=== PATIENT | male | born 1990 | race Two or more races ===

== ENCOUNTER 2024-06-05 19:21 | Emergency (ER) | payer OTHER, SELFPAY ==
[2024-06-05] VITALS (21 sets, daily range): BP systolic 147–177; BP diastolic 78–91; PULSE 112–119; RESP 26; TEMP 37.2; O2SAT 92–99; BMI 24.6
--- NOTE | 2024-06-05 19:53 | CRLHL7_ITS ---
For Patients: As a result of the Century Cures Act, medical imaging exams and procedure reports are released immediately into your electronic medical record. You may view this report before your referring provider. If you have questions, please contact your health care provider. INDICATION: Cough, chest pain, shortness of breath. TECHNIQUE: Chest radiographs, 2 views. COMPARISON: None. FINDINGS: Cardiovascular/Mediastinum: Normal heart size. Unremarkable. Lungs: Patchy multifocal consolidation predominantly involving the right greater than left lung zones. Airways: Trachea remains midline. Pleura: No pleural effusions or pneumothorax. Bones: No acute osseous abnormalities. Upper abdomen: Unremarkable. IMPRESSION: Nonspecific patchy multifocal consolidation can be seen in the setting of acute respiratory distress syndrome (ARDS). Dictated by Porfirio Tobar MD @ 06/05/2024 8:50:01 PM (Electronically Signed)
[2024-06-05 20:12] LABS: Lactate* 0.7 mmol/L (0.5-1.9)
[2024-06-05 20:16] LABS: Basophils Percent Auto 0.1 % (0.0-3.0); Hematocrit 20.1 % (37.0-53.0); Immature Granulocytes Pct Auto 0.5 %; Lymphocytes Percent Auto 5.1 % (20-44); Mean Corpuscular HGB Conc 33 gm/dL (32-36); Mean Corpuscular Hemoglobin 28 pg (26-34); Mean Corpuscular Volume 86 fL (80-100); Monocytes Percent Auto 2.8 % (0.0-11.0); Neutrophils Percent Auto 91.5 % (42.0-72.0); Platelet Count* 189 K/uL (140-440); RDW Coefficient of Variation % 14.2 % (11.5-15.5); Red Blood Count 2.34 m/uL (4.30-5.90); White Blood Count* 21.76 K/uL (4.50-11.00)
[2024-06-05 20:17] LABS: Hemoglobin* 6.6 gm/dL (13.5-17.5)
[2024-06-05 20:21] LABS: Slide Review Reflex Yes
[2024-06-05 20:26] LABS: Albumin* 4.1 g/dL (3.3-5.0); Chloride* 100 mmol/L (96-114); Sodium* 130 mmol/L (135-149)
[2024-06-05 20:27] LABS: Potassium* 4.7 mmol/L (3.6-5.1)
[2024-06-05 20:28] LABS: Troponin, Point-of-Care* 0.09 ng/ml (0.01-0.04)
[2024-06-05 20:30] LABS: Alanine Aminotransferase* 9 U/L (4-50); Alkaline Phosphatase* 112 U/L (40-150); Aspartate Amino Transferase* 20 U/L (12-35); Bilirubin Direct* 0.8 mg/dL (0.0-0.5); Bilirubin Total* 0.8 mg/dL (0.1-1.5); Glucose* 102 mg/dL (60-115); Lipase* 280 U/L (23-300); Total Protein* 7.2 g/dL (6.0-8.3)
[2024-06-05 20:36] LABS: Slide Review Acceptable Review (Acceptable)
[2024-06-05 20:39] LABS: Anion Gap 25 mEq/L (7-15); Blood Urea Nitrogen* 164 mg/dL (5-24); Calcium* 4.3 mg/dL (8.4-10.6); Carbon Dioxide* < 5 mmol/L (20-32)
[2024-06-05 20:41] LABS: PCR FLU A Negative PCR FLU A (Negative); PCR FLU B Negative PCR FLU B (Negative); PCR RSV Negative PCR RSV (Negative); SARS PCR* POSITIVE SARS-CoV-2 (Negative)
[2024-06-05 20:44] LABS: Troponin I* 0.09 ng/mL (0.01-0.04)
[2024-06-05 21:01] LABS: Strep A DNA Probe* NOT DETECTED (Not Detectd)
[2024-06-05 21:09] LABS: Creatinine* 20.1 mg/dL (0.5-1.5); Est. Creatinine Clearance* 4.96; Estimated Glomerular Filt Rate 3 ml/min
[2024-06-05 21:10] LABS: C Reactive Protein* 31.8 mg/dL (0.5-1.0); Erythrocyte SedimentationRate* > 120 mm/hr (2-15)
--- NOTE | 2024-06-05 21:11 | CRLHL7_ITS ---
For Patients: As a result of the 21st Century Cures Act, medical imaging exams and procedure reports are released immediately into your electronic medical record. You may view this report before your referring provider. If you have questions, please contact your health care provider. INDICATION: Sepsis. TECHNIQUE: Multiplanar CT examination of the chest, abdomen and pelvis was performed without the use of intravenous contrast. COMPARISON: None. FINDINGS: CHEST: Lower neck: Visualized thyroid appears unremarkable. Cardiovascular: Normal heart size. No significant atherosclerotic calcifications of the thoracic aorta. Normal caliber of the thoracic aorta and pulmonary artery. No CT evidence of acute aortic injury. No significant coronary arterial calcifications. No large central pulmonary embolus. Mediastinum and lymph nodes: No pathologic lymphadenopathy by size criteria. Airways: Trachea remains patent and midline. Mild diffuse peribronchial wall thickening. Lungs: Extensive multifocal consolidation with peripheral ground-glass opacification (halo sign). Pleura: No pleural effusions or pneumothorax. Chest wall: No axillary lymphadenopathy. Unremarkable. Bones: No acute osseous abnormalities. No acute displaced rib fractures. ABDOMEN AND PELVIS: Liver: Unremarkable. Gallbladder: Unremarkable. Biliary: No biliary ductal dilatation. Pancreas: Within normal limits. Spleen: Unremarkable. Adrenals: Unremarkable. Kidneys/ureters/bladder: Bilateral renal atrophy. No obstructive urinary calculus or hydronephrosis. No obstructive uropathy. The bladder is within normal limits. Limited evaluation for renal masses without the use of intravenous contrast. Gastrointestinal: No bowel wall thickening or bowel obstruction. Normal appendix. No significant colonic diverticulosis. Mild colonic stool burden. Pelvic structures: Unremarkable. Vascular: No significant atherosclerotic calcifications of the abdominal aorta. No aneurysm. Peritoneum: No free fluid or pneumoperitoneum. No drainable fluid collections. Lymph nodes: No pathologic lymphadenopathy by size criteria. Abdominal wall/soft tissues: Unremarkable. Bones: No acute osseous abnormalities. IMPRESSION: 1. Limited evaluation without the use of intravenous contrast. 2. Extensive multifocal consolidation with peripheral ground-glass opacification (halo sign), suspicious for an atypical pneumonia. Clinical correlation with patient`s immune status and consider atypical fungal etiologies (for example, angioinvasive aspergillosis). 3. No acute abdominopelvic pathology. Please note that all CT scans at this facility use dose modulation, iterative reconstruction, and/or weight-based dosing when appropriate to reduce radiation dose to as low as reasonably achievable. Dictated by Porfirio Tobar MD @ 06/05/2024 10:32:58 PM (Electronically Signed)
[2024-06-05 21:15] LABS: Fibrinogen* 777 mg/dL (200-450); INR 1.44 (0.91-1.10); Prothrombin Time 18.5 Seconds
[2024-06-05 21:20] LABS: Magnesium* 1.4 mg/dL (1.5-2.6)
--- NOTE | 2024-06-05 22:18 | ED_ITS ---
HPI - General Adult General Chief complaint: Shortness of Breath/Dyspnea Stated complaint: Sore throat, SOB, cough Time Seen by Provider: 06/05/24 19:46 Source: patient Mode of arrival: ambulatory Limitations: no limitations History of Present Illness HPI narrative: Patient is a 34-year-old male who was in his usual state of health until 2 days ago when he developed a cough, body aches and shortness of breath. He stated that it came on fairly suddenly with cold symptoms that escalated to shortness of breath and body aches by the end of day 1. He denies vomiting. Denies diarrhea or rashes. He denies any recent traveling in the last month. Denies any sick contacts. He states that he has headache, neck pain, chest pain and abdominal pain. He denies any pain with urination. He states that when he coug hs he has blood-tinged sputum. Related Data Allergies Allergy/AdvReac Type Severity Reaction Status Date / Time No Known Drug Allergies Allergy Verified 06/05/24 19:34 Review of Systems Status of ROS: Reports: 10 or more systems reviewed and unremarkable except as noted in History and below Exam Narrative: Exam Narrative: Well-nourished well-developed patient, he is tachypneic and tachycardic upon arrival. Alert and oriented x3. Answers questions appropriately. Patient cannot complete a sentence without needing to catch his breath. He does appear ill. HEENT: Normocephalic atraumatic. Pupils are equally round reactive to light. Extraocular muscles are intact. Conjunctivae are moist without any icterus noted. Moist mucous membranes. Posterior pharynx is normal. Neck is soft without any lymphadenopathy or thyromegaly. No masses are appreciated. Cardiovascular: Tachycardic, no murmurs are appreciated. Lungs: Mild crackles bilaterally but good air movement. Abdomen: Soft with normal bowel sounds. He has diffuse acute tenderness. Extremities: Bilateral lower extremities are without edema. Skin: Well perfused. Warm and dry. Const: Vital Signs, click to edit/add: Vital Signs - 24 hr 06/05/24 19:27 06/05/24 20:12 06/05/24 20:13 Temperature 98.9 F Pulse Rate 113 H 114 H Pulse Rate [Left P ulse Oximeter] 116 H Respiratory Rate 26 H Blood Pressure 162/83 H Blood Pressure [Ri ght Upper Arm] 147/78 H Pulse Oximetry 95 95 95 Oxygen Delivery Me thod Room Air Oxygen Flow Rate 06/05/24 20:14 06/05/24 20:15 06/05/24 20:30 Temperature Pulse Rate 114 H 114 H 112 H Pulse Rate [Left P ulse Oximeter] Respiratory Rate Blood Pressure 165/86 H Blood Pressure [Ri ght Upper Arm] Pulse Oximetry 95 95 97 Oxygen Delivery Me thod Oxygen Flow Rate 06/05/24 20:52 06/05/24 20:53 06/05/24 21:00 Temperature Pulse Rate 116 H 114 H 118 H Pulse Rate [Left P ulse Oximeter] Respiratory Rate Blood Pressure 177/88 H Blood Pressure [Ri ght Upper Arm] Pulse Oximetry 92 93 93 Oxygen Delivery Me thod Oxygen Flow Rate 06/05/24 21:03 06/05/24 21:15 06/05/24 21:16 Temperature Pulse Rate 113 H 115 H Pulse Rate [Left P ulse Oximeter] Respiratory Rate Blood Pressure 167/80 H Blood Pressure [Ri ght Upper Arm] Pulse Oximetry 94 92 94 Oxygen Delivery Me thod Oxygen Flow Rate 06/05/24 21:19 Temperature Pulse Rate Pulse Rate [Left P ulse Oximeter] Respiratory Rate Blood Pressure Blood Pressure [Ri ght Upper Arm] Pulse Oximetry 96 Oxygen Delivery Me thod OxyMask Oxygen Flow Rate 4 Course Course ED Course: EKG, read by me, shows sinus tachycardia with a pulse of 116. Blood work was significantly abnormal with an elevated white cell count 21.7, hemoglobin 6.6. Sed rate greater than 120. Chemistry showed a sodium of 130, carbon dioxide less than 5, BUN 164, creatinine 20.1 Calcium 4.3, magnesium 1.4. Troponin elevated at 0.09. CRP of 31.8. Patient is COVID positive. Fibrinogen 777, D-dimer elevated at 3.7, elevated INR at 1.44 Chest x-ray, read by me, showing bilateral diffuse infiltrates. Radiologic over-read mentioning that infiltrates can be seen in ARDS. During the workup patient's respiratory rate did increase into the upper 40s. Pulse remained in the 1 teens then went up into the 120s. Blood pressure the went up into the 160s systolic. There was no bed available at [place], [facility] did not get back to us, [facility] [place] [facility] accepted the patient for transfer. We did get right intubate the patient prior to discharge however we then attempted BiPAP. His pulse came back down into the teens and has respiratory rate came back down to 30-32. He was feeling much more comfortable stated that he felt better. Because of this we kept him on the BiPAP and patient was transferred on BiPAP. While he was here he also received 500 mL of normal saline. We did type and screen for blood transfusion however the blood arrived just as he was being transferred so we held off. We were also able to do a chest and abdomen CT without contrast, radiologic over-read pending at this time. Vital Signs Vital signs: Initial Vital Signs Temperature 98.9 F 06/05/24 19:27 Temperature Source Temporal Artery Scan 06/05/24 19:27 Pulse Rate 116 H 06/05/24 19:27 Pulse Rhythm Regular 06/05/24 19:27 Respiratory Rate 26 H 06/05/24 19:27 Blood Pressure 147/78 H 06/05/24 19:27 Blood Pressure Mean 101 06/05/24 19:27 Blood Pressure Position Sitting 06/05/24 19:27 Pulse Oximetry 95 06/05/24 19:27 Oxygen Delivery Method Room Air 06/05/24 19:27 Vital Signs Temperature 98.9 F 06/05/24 19:27 Pulse Rate 116 H 06/05/24 19:27 Respiratory Rate 26 H 06/05/24 19:27 Blood Pressure 147/78 H 06/05/24 19:27 Pulse Oximetry 95 06/05/24 19:27 Oxygen Delivery Method Room Air 06/05/24 19:27 Temperature 98.9 F 06/05/24 19:27 Pulse Rate 115 H 06/05/24 21:16 Respiratory Rate 26 H 06/05/24 19:27 Blood Pressure 167/80 H 06/05/24 21:16 Pulse Oximetry 96 06/05/24 21:19 Oxygen Delivery Method OxyMask 06/05/24 21:19 Oxygen Flow Rate 4 06/05/24 21:19 Medications Administered Medications: Discontinued Medications Generic Name Dose Route Start Last Admin Trade Name Freq PRN Reason Stop Dose Admin Sodium Chloride 1,000 mls @ 1,000 mls/hr 06/05/24 20:00 06/05/24 21:09 0.9 % Sodium Chloride 1000 Ml IV 06/05/24 20:59 Not Given .Q1H THELMA Lorazepam 0.5 mg 06/05/24 19:53 06/05/24 21:09 Lorazepam 2 Mg/Ml Inj IVP 06/05/24 19:54 Not Given ONCE ONE Medical Decision Making MDM Narrative Medical decision making narrative: 34-year-old male presenting in ARDS of unclear etiology and multi organ system dysfunction. Patient transferred to the ICU at [facility]. Lab Data Lab results reviewed: Yes I reviewed the patient's lab results Labs: Lab Results 06/05/24 06/05/24 06/05/24 Range/Units 19:57 20:00 20:37 WBC 21.76 H (4.50-11.00) K/uL RBC 2.34 L (4.30-5.90) m/uL Hgb 6.6 L* (13.5-17.5) gm/dL Hct 20.1 L (37.0-53.0) % MCV 86 (80-100) fL MCH 28 (26-34) pg MCHC 33 (32-36) gm/dL RDW Coeff of Dylan 14.2 (11.5-15.5) % Plt Count 189 (140-440) K/uL Neut % (Auto) 91.5 H (42.0-72.0) % Lymph % (Auto) 5.1 L (20-44) % [place] % (Auto) 2.8 (0.0-11.0) % Eos % (Auto) 0.0 (0.0-7.0) % Baso % (Auto) 0.1 (0.0-3.0) % Neut # (Auto) 19.90 H (1.7-7.0) K/uL Lymph # (Auto) 1.10 (0.90-2.90) K/uL Amite # (Auto) 0.60 (0.00-0.90) K/UL Eos # (Auto) 0.00 (0.00-0.50) K/uL Baso # (Auto) 0.00 (0.00-0.30) K/uL Abs Immat Gran (auto) 0.10 (0.00-0.30) K/uL Imm/Tot Granulo (auto) 0.5 % Diff Slide Review Acceptable Review (Acceptable) ESR > 120 H (2-15) mm/hr INR 1.44 H (0.91-1.10) Fibrinogen 777 H (200-450) mg/dL D-Dimer Quant (PE/DVT) 3.70 H (0.00-0.50) ug/ml Sodium 130 L (135-149) mmol/L Potassium 4.7 (3.6-5.1) mmol/L Chloride 100 (96-114) mmol/L Carbon Dioxide < 5 L* (20-32) mmol/L Anion Gap 25 H (7-15) mEq/L BUN 164 H (5-24) mg/dL Creatinine 20.1 H (0.5-1.5) mg/dL Estimated Creat Clear 4.96 Estimated GFR 3 ml/min Glucose 102 (60-115) mg/dL Lactate 0.7 (0.5-1.9) mmol/L Calcium 4.3 L* (8.4-10.6) mg/dL Magnesium 1.4 L (1.5-2.6) mg/dL Total Bilirubin 0.8 (0.1-1.5) mg/dL Direct Bilirubin 0.8 H (0.0-0.5) mg/dL AST 20 (12-35) U/L ALT 9 (4-50) U/L Alkaline Phosphatase 112 (40-150) U/L Troponin I 0.09 H* (0.01-0.04) ng/mL C-Reactive Protein 31.8 H (0.5-1.0) mg/dL Total Protein 7.2 (6.0-8.3) g/dL Albumin 4.1 (3.3-5.0) g/dL Lipase 280 (23-300) U/L TSH 1.190 (0.270-4.20) uIU/mL SARS-CoV-2 (PCR) POSITIVE SARS-CoV-2 A (Negative) Influenza Type A (PCR) Negative PCR FLU A (Negative) Influenza Type B (PCR) Negative PCR FLU B (Negative) RSV (PCR) Negative PCR RSV (Negative) Group A Strep DNA NOT DETECTED (Not Detectd) POC Troponin I 0.09 H (0.01-0.04) ng/ml Blood Type O Positive Antibody Screen NEGATIVE Crossmatch (AHG) See Detail Imaging Data Chest x-ray: Attestation: I have reviewed the pertinent imaging results. Radiologist's impression: TECHNIQUE: Chest radiographs, 2 views. COMPARISON: None. FINDINGS: Cardiovascular/Mediastinum: Normal heart size. Unremarkable. Lungs: Patchy multifocal consolidation predominantly involving the right greater than left lung zones. Airways: Trachea remains midline. Pleura: No pleural effusions or pneumothorax. Bones: No acute osseous abnormalities. Upper abdomen: Unremarkable. IMPRESSION: Nonspecific patchy multifocal consolidation can be seen in the setting of acute respiratory distress syndrome (ARDS). ECG Data Attestation: I personally reviewed and interpreted this ECG as follows: Critical Care Time Critical Care Time Total Critical Care Time in Minutes: 60 Discharge Plan Discharge Clinical Impression: Acute respiratory distress syndrome (ARDS), Multi-organ system dysfunction Patient Disposition: Xfer Other Discharge Location: [facility] Condition: Critical Follow Up/Referrals: Provider,Not a Local [Primary Care Provider] - Stand Alone Forms: [employer] Info Instructions
--- NOTE | 2024-06-05 22:26 | PC.NURSE ---
2145 pt status elevated to lights and sirens with emergent [place] [facility] [place]
== END 2024-06-05 22:33 | disposition other institution (70) ==
PROVIDERS: Emergency Provider Family Medicine
DX: J80 Acute respiratory distress syndrome (principal)
CPT/HCPCS: 36415; 71046; 71250; 74176; 80048; 80076; 83605; 83690; 83735; 84443; 84484; 85025; 85379; 85384; 85610; 85651; 86140; 86480; 86850; 86900; 86901; 86922; 87631; 87651; 93005; 99285; 99291

== ENCOUNTER 2024-06-05 22:03 | Outpatient (CLI) | payer OTHER, SELFPAY | END 2024-06-05 22:04 | disposition home or self-care (01) | LOC: AMB 06-27 11:43 | PROVIDERS: Visit Provider Family Medicine | DX: J80 Acute respiratory distress syndrome (principal) | CPT/HCPCS: A0425; A0434 ==